=== PATIENT | male | born 1995 | race African-American/Black ===

== ENCOUNTER 2023-02-01 12:50 | Emergency (ER) | payer OTHER ==
[~2023-02-01] VITALS: Ht 170.2 cm; Wt 61.4 kg
[2023-02-01] MEDS ORDERED: HALO50VI29 IM (13:00)
[2023-02-01] MEDS ORDERED: HALOPERIDOL 5 MG TABLET PO ONE (15:30)
[2023-02-01] MEDS ORDERED: DiphenhydrAMINE HCL 25 MG CAPSULE PO ONE (15:30)
[2023-02-01 15:57] VITALS: BP 133/64
== END 2023-02-01 16:01 | disposition home or self-care (01) ==
LOC: EMS 13:10
DX: F20.9 Schizophrenia, unspecified (principal); F31.9 Bipolar disorder, unspecified
CPT/HCPCS: 99284; Z7502; Z7610